=== PATIENT | female | born 1975 | race Caucasian/White ===

== ENCOUNTER 2025-06-27 07:04 | Emergency (ER) | payer MEDICAID, SELFPAY ==
[2025-06-27 07:07] VITALS: BP 168/131; PULSE 84; RESP 17; TEMP 36.4; O2SAT 97; BMI 38.3
--- NOTE | 2025-06-27 07:10 | ED_ITS ---
HPI - General Adult General: Stated complaint: rt ear pain Time Seen by Provider: 06/27/25 07:07 Source: patient Mode of arrival: ambulatory Limitations: no limitations History of Present Illness: 50-year-old female states has been havin g right ear pain since this morning. States pain sharp in nature rates it a 7 out of 10. She denies any fevers denies any worse or improving factors. Related Data Previous Rx's ?Medication ?Instructions ?Recorded cephalexin 500 mg capsule 500 mg PO TID 7 days #21 cap s 06/27/25 Allergies Allergy/AdvReac Type Severity Reaction Status Date / Time Penicillins Allergy ALGY-Anaphy Verified 06/27/25 07:10 laxis Review of Systems ENMT: Reports: ear or mastoid pain Physical Exam Const: COMMON NORMALS: no acute distress, patient oriented x3 and healthy appearing HENMT: COMMON NORMALS: normocephalic and atraumatic HEAD & SCALP: normocephalic and atraumatic TYMPANIC MEMBRANE: TM abnormal TM laterality: right Details: erythematous Eye: COMMON NORMALS: conjunctivae normal CONJUNCTIVA: Yes conjunctivae normal Neck/C-Spine: COMMON NORMALS: full ROM and supple Extremity: COMMON NORMALS: normal to inspection and full ROM Neuro: COMMON NORMALS: patient oriented x3, moves all extremities and no focal motor deficits Psych: COMMON NORMALS: mental status grossly normal, Normal thought process present and cooperative THOUGHT PROCESS: Normal thought process present Skin: COMMON NORMALS: no rashes or lesions noted and no wounds GENERAL SKIN EXAM: no rashes or lesions noted MDM - General Adult Medical Decision Making 50-year-old female presents with right ear pain differential includes otitis media, otitis externa, mastoiditis. Patient has no tenderness over mastoid ear canals normal does have erythema to her tympanic membrane consistent with otitis media. Did give her a dose of Keflex here will prescribe her Keflex for home she is stable for discharge follow-up with PCP return if worsening she understands agrees to plan Medical Records I reviewed the patient's medical records. No radiology studies performed this visit Discharge Plan Discharge Patient Disposition: Home Clinical Impression: Otitis media Qualifiers: Otitis media type: unspecified Laterality: right Qualified Code(s): H66.91 - Otitis media, unspecified, right ear Condition: Stable Prescriptions: New cephalexin 500 mg capsule 500 mg PO TID 7 Days Qty: 21 0RF Discharge Orders: Discharge ED (Routine); Ordered 06/27/25 Ordered By: Gerri Alvarez Discharge Diet: Advance as tolerated Discharge Activity: Resume usual activity Patient Instructions: Ear Infection (ED) Print Language: Danish Coding Level of Care Code ED Broom Man for Fidelia Sandoval
--- OUTSIDE RECORDS SUMMARY | 2025-06-27 07:10 | XMS_ITS | Clinical Summary ---
Author Organization [facility] Address [address] 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
--- OUTSIDE RECORDS SUMMARY | 2025-06-27 07:10 | XMS_ITS | Encounter Summary ---
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
[2025-06-27 07:16] VITALS: BP 154/102; PULSE 82; O2SAT 97
== END 2025-06-27 07:19 | disposition home or self-care (01) ==
PROVIDERS: Emergency Provider Emergency Medicine
DX: H66.91 Otitis media, unspecified, right ear (principal)
CPT/HCPCS: 99283; J9999